=== PATIENT | male | born 1945 | race Caucasian/White ===

== ENCOUNTER 2024-12-08 09:34 | Outpatient (AMB) | payer OTHER, SELFPAY ==
--- NOTE | 2024-12-08 09:47 | MHC.PC.OV ---
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 Request Intake Note: New patient visit Director Strategy Required: No Allergies No Known Allergies Allergy (Verified 12/08/24 09:48) Tobacco use date assessed: 12/08/24 Fall risk assessment: No Falls in past year Last assessed Fall Risk: 12/08/24 Dental Screening Dental Screen Date: 12/08/24 Did you have a dental visit in the last 12 months?: Yes Did you have a dental problem in the last 6 months where you did not have access to dental care?: No Was dental information given to patient?: Patient has dentist HPI HPI Comments History of Present Illness Details The patient is an 79 year old male with past medical history of hypetension, hyperlipidemia, GERD, barretts, presenting to [facility] care. Transfer from [place] CV: amlodipine 5mg daily, metoprolol 25 daily daily. BP is well controlled. Denies chest pain, exertional dyspnea GERD:stable on omeprazole Bilateral right more than left CMC pain. Declines referral . Also with low back pain intermittently-chronic. declines referral Follows with Dr Richardson at [place] for endoscopy. ROS see HPI PHYSICAL EXAM: GENERAL: Alert and oriented x 3. NAD EYES: EOMI. Anicteric. HENT: Moist mucous membranes. No scleral icterus. No cervical lymphadenopathy. LUNGS: Clear to auscultation bilaterally. CARDIOVASCULAR: Regular rate and rhythm. No murmur. No JVD. ABDOMEN: Soft, non-tender +bs EXTREMITIES: No edema. Non-tender. SKIN: No rashes or lesions. Warm. NEUROLOGIC: No focal neurological deficits. CN II-XII grossly intact PSYCHIATRIC: Cooperative. Appropriate mood and affect [facility] Medical History Bilateral cataracts Surgical History History of surgery on arm H/O colonoscopy H/O hernia repair Hx of appendectomy Family History Mother Metastatic cancer Maternal Grandmother Diabetes 1.5, managed as type 1 Father HTN (hypertension) Stroke Daughter Depression Schizophrenia Other FH: mental illness Social History Housing: House Alcohol intake: current Patient Tobacco Use Status: Never used Tobacco e-Cigarette/Vaping Use: Never Used Second Hand Smoke Exposure: No Current occupational status: retired Cognitive needs: No Hearing needs: Yes (hearing impaired) Vision needs: No Questionnaire PHQ-9 Over the last 2 weeks, how often have you been bothered by any of the following problems? 1. Little interest or pleasure in doing things: not at all 2. Feeling down, depressed, or hopeless: not at all 3. Trouble falling or staying asleep, or sleeping too much: not at all 4. Feeling tired or having little energy: not at all 5. Poor appetite or overeating: not at all 6. Feeling bad about yourself - or that you are a failure or have let yourself or your family down: not at all 7. Trouble concentrating on things, such as reading the newspaper or watching television: not at all 8. Moving or speaking so slowly that other people could have noticed. Or the opposite - being so fidgety or restless that you have been moving around a lot more than usual: not at all 9. Thoughts that you would be better off or of hurting yourself in some way: not at all Total score: 0 Depression Screening Interpretation: Negative Depression Screening Done: Yes 16292 - PHQ-9 Billing: Yes Source: Developed by Drs. Ra Barcenas, Shelia Gordon, Keaton Dallas and colleagues, with an educational teri from [email or web address]. Thrive Questionnaire Date Thrive assessed: 12/08/24 I am a: Patient What is your living situation today?: I have a steady place to live Within the past 12 months, did the food you bought not last and you didn't have the money to get more?: I choose not to answer this question Within the past 12 months, did you worry whether your food would run out before you got money to buy more?: I choose not to answer this question Do you have trouble paying for medicines?: No Do you have trouble getting transportation to medical appointments?: No Do you have trouble paying your heating and electricity bill?: No Do you have trouble taking care of your child, family member or friend?: No Do you have trouble with day-to-day activities such as bathing, preparing meals, shopping, managing finances, etc.?: No Are you currently unemployed and looking for a job?: No Are you interested in more education?: No Please select the resources that you would like help with: None Currently or been in a relationship where the following occur: No concerns reported THRIVE Score: 0 AUDIT C Alcohol Use Questionnaire (AUDIT-C) 1. How often do you have a drink containing alcohol?: Never 3. How often do you have six or more drinks on one occasion?: Never Total Score: 0 CHERRI-7 AMB Questionnaire CHERRI-7 Date CHERRI - 7 assessed: 12/08/24 Feeling nervous, anxious, or on edge: 0 = Not at all Not being able to stop or control worryin = Not at all Worrying too much about different things: 0 = Not at all Trouble relaxin = Not at all Being so restless that it is hard to sit still: 0 = Not at all Becoming easily annoyed or irritable: 0 = Not at all Feeling afraid as if something awful might happen: 0 = Not at all Total CHERRI-7 score (0-4 normal; 5-9 mild; 10-14 moderate; 15-21 severe): 0 Source: Developed by Drs. Ra Barcenas, Shelia Gordon, Keaton Dallas and colleagues, with an educational teri from [email or web address]. CHERRI-7 Assessment Billing CHERRI-7 Assessment Tool: CHERRI-7 Assessment 71915 Physical exam (Primary Care) Vital Signs: Last Vital Signs Temp 98 F 12/08/24 09:54 Pulse 55 12/08/24 09:54 Resp 12 12/08/24 09:54 BP 118/72 12/08/24 09:54 Pulse Ox 97 12/08/24 09:54 Oxygen Delivery Method Room Air 12/08/24 09:54 BMI result Body Mass Index 27.1 Tobacco/Smoking Status: Tobacco use Status Tobacco use date assessed 12/08/24 12/08/24 10:05 Patient Tobacco Use Status Never used Tobacco 12/08/24 10:05 e-Cigarette/Vaping Use Never Used 12/08/24 10:05 PHQ-9: PHQ-9 Score PHQ-9: Total score 0 12/08/24 16:57 Depression Screening Interpretation: Negative Thrive Assessment: Date of Thrive Assessment Date Thrive assessed 12/08/24 12/08/24 10:05 Currently or been in a relationship where the following occur: No concerns reported Coding Level of Care Code New Pt Level 4 (21451) Complex EM visit Add On G2211 Diagnoses Primary hypertension I10 Hypertension type: primary hypertension Hyperlipidemia, unspecified hyperlipidemia type E78.5 Hyperlipidemia type: unspecified CMC arthritis M19.049 Chronic low back pain, unspecified back pain laterality, unspecified whether sciatica present M54.50; G89.29 Chronicity: chronic Back pain laterality: unspecified Sciatica presence: unspecified whether sciatica present Additional Codes CHERRI-7 Assessment Billing - CHERRI-7 Assessment Tool: CHERRI-7 Assessment 62214 ([id number]) PHQ-9 - 00537 - PHQ-9 Billing: Yes ([id number]) Assessment & Plan Assessment & Plan (1) Hypertension: Code(s): I10 - Essential (primary) hypertension Category: Medical Qualifiers: Hypertension type: primary hypertension Qualified Code(s): I10 - Essential (primary) hypertension (2) Hyperlipidemia: Code(s): E78.5 - Hyperlipidemia, unspecified Category: Medical Qualifiers: Hyperlipidemia type: unspecified Qualified Code(s): E78.5 - Hyperlipidemia, unspecified (3) CMC arthritis: Code(s): M19.049 - Primary osteoarthritis, unspecified hand Category: Medical (4) Low back pain: Code(s): M54.50 - Low back pain, unspecified Category: Medical Qualifiers: Chronicity: chronic Back pain laterality: unspecified Sciatica presence: unspecified whether sciatica present Qualified Code(s): M54.50 - Low back pain, unspecified; G89.29 - Other chronic pain Plan 79 yo to establish care past medical, surgical, social reviewed Labs ordered HTN well controlled Back pain, CMC pain, voltaren lidocaine ordered Orders: Orders Lipid Panel 12/08/24 E78.5 - Hyperlipidemia, unspecified, I10 - Essential (primary) hypertension, M19.049 - Primary osteoarthritis, unspecified hand, M54.50 - Low back pain, unspecified Complete Blood Count Auto Diff 12/08/24 E78.5 - Hyperlipidemia, unspecified, I10 - Essential (primary) hypertension, M19.049 - Primary osteoarthritis, unspecified hand, M54.50 - Low back pain, unspecified Comprehensive Met. Panel 12/08/24 E78.5 - Hyperlipidemia, unspecified, I10 - Essential (primary) hypertension, M19.049 - Primary osteoarthritis, unspecified hand, M54.50 - Low back pain, unspecified Prostate Specific Antigen 12/08/24 E78.5 - Hyperlipidemia, unspecified, I10 - Essential (primary) hypertension, M19.049 - Primary osteoarthritis, unspecified hand, M54.50 - Low back pain, unspecified Testosterone, Free/Total 12/08/24 E78.5 - Hyperlipidemia, unspecified, I10 - Essential (primary) hypertension, M19.049 - Primary osteoarthritis, unspecified hand, M54.50 - Low back pain, unspecified Medications: New lidocaine 5% leave on most painful area for up to 12 hrs 1 patch topical DAILY 30 ea 3RF lidocaine 5% leave on most painful area for up to 12 hrs 1 patch topical DAILY 30 ea 3RF diclofenac sodium 1% (Voltaren Arthritis Pain) apply to single elbow, wrist or hand; for hand includes palm/fingers/back of hand 2 grams topical QID 100 grams 3RF diclofenac sodium 1% (Voltaren Arthritis Pain) apply to single elbow, wrist or hand; for hand includes palm/fingers/back of hand 2 grams topical QID 100 grams 3RF
[2024-12-08 09:54] VITALS: BP 118/72; PULSE 55; RESP 12; TEMP 36.6; O2SAT 97; BMI 27.1
--- OUTSIDE RECORDS SUMMARY | 2024-12-08 10:00 | XMS_ITS | Clinical Summary ---
Author Organization [facility] Address [address] [place] [address] Phone Care Team Providers Care [place] Name Role Phone Luh Boyd MD Primary Care Provider [phone] Allergies No known active allergies Medications cholecalcifero l (VITAMIN D-3) 50 mcg (2,000 unit) tablet Take 5,000 Units by mouth. 0 Active omeprazole (PriLOSEC) [address] capsule Take 1 Capsule by mouth daily. 4 Active SELENIUM ORAL Take by mouth. Active mv-mn/om3/dha/ epa/fish/lut/z ea (OCUVITE ADULT 50 PLUS ORAL) Take by mouth daily. Active metoprolol succinate (TOPROL-XL) 25 mg 24 hr tablet TAKE 1 TABLET BY MOUTH DAILY 90 tablet 2 5 Active amLODIPine (NORVASC) 5 mg tablet Take 1 tablet (5 mg total) by mouth 1 (one) time each day. 90 tablet 2 5 Active simvastatin (ZOCOR) 20 mg tablet TAKE 1 TABLET BY MOUTH AT BEDTIME 90 tablet 5 Active simvastatin (ZOCOR) 20 mg tablet Take 1 Tablet by mouth at bedtime. 4 11/13/19 25 Discontinued Active Problems Problem Noted Date Diagnosed Date Uncontrolled hypertension 09/04/2022 Hypercholesteremia 10/07/2007 Overview (03/12/2024): Stress echo 07/09/07 normal Hyperglycemia 10/07/2007 Osteopenia 10/07/2007 Overview (03/12/2024): Lumbar spine-1.9 avg, with -2.4 at L4, on 09/06/07, nl vitamin D 10/03, repeat 12/05 Internal hemorrhoid 10/07/2007 Overview (03/12/2024): Incidental finding on colonoscopy 11/28 Immunizations Name Administration Dates Next Due DTaP, Unspecified 07/08/2003 Influenza trivalent, 0.5mL (Fluad) 65yo and olde r 02/13/2019,03/21/2018 Influenza trivalent, 0.5mL, preservative free (Fluarix; FluLaval; Fluzone) ages 6mo and older (Afluria) 3 years and older 03/01/2015,03/10/2014 Influenza, Unspecified 03/02/2023,02/26/2016 Rocket.La SARS-CoV-2 COVID-19, mRNA, LNP-S, preservative free 03/02/2023 Pneumococcal conjugate 13 va lent (Prevnar 13, PCV13) 2mo and older 02/09/2015 Pneumococcal polysaccharide 23 valent (Pneumovax 23) 2yo and older 10/07/2008,07/30/2002 Tdap Tetanus diptheria acell ular pertussis (Boostrix; Adacel) 7yo and older 03/10/2014 Zoster Live 07/07/2014 Zoster recombinant (Shingrix) 19yo and older 02/2019,12/19/2018 Surgical History Surgery Date Site/Laterality Comments OTHER SURGICAL HISTORY 2003 PROCEDURE: HISTORICAL ARM SURGERY; COMMENT: biceps tendon repair, left, Dr Miah Crawford APPENDECTOMY 06/02/09 PROCEDURE: HISTORICAL APPENDECTOMY; COMMENT: perforated appendicitis HERNIA REPAIR 2010 PROCEDURE: HISTORICAL HERNIA REPAIR/CRISELDA; COMMENT: incisional COLONOSCOPY 11/28 PROCEDURE: HISTORICAL COLONOSCOPY; COMMENT: dr Gregory, nl except small int hemorrhoids OTHER SURGICAL HISTORY 03/11/15 PROCEDURE: COLON CA SCRN NOT HI RSK IND; COMMENT: hemorrhoids; would not repeat CATARACT EXTRACTION 2017 Bilateral PROCEDURE: HISTORICAL CATARACT REMOVAL Medical History Medical History Date Comments Hyperglycemia 10/07/2007 DX:Hyperglycemia Osteopenia 10/07/2007 DX:Osteopenia Hypercholesteremia 10/07/2007 DX:Hyperchole steremia; COMMENT: Stress echo 07/09/07 normal History of actinic keratoses 01/19/2014 DX: History of actinic keratoses; COMMENT: Actinic keratosis Hypertension Family History Medical History Relation Name Comments Depression Daughter 1 mental retardat ion, schizophrenia Hypertension Father Stroke Father Diabetes Maternal Grandmother Other cancer Mother metastatic abdo men,stomach? Relation Name Status Comments Brother agent orange ca ncer Daughter 1 Daughter 2 Alive Father (Age 80) cva,HTN, h eart disease Maternal Grandfather Maternal Grandmother Mother (Age 44) metastatic cancer Paternal Grandfather Paternal Grandmother Social History Tobacco Use Types Packs/Day Years Used Date Smoking Tobacco: Never Smokeless Tobacco: Never Alcohol Use Standard Drinks/Week Comments Yes 2.5 (1 standard drink = 0.6 oz p ure alcohol) Interpersonal Safety Answer Date Record ed Physical Abuse 04/14/2024 Verbal Abuse 04/14/2024 Sex and Gender Information Value Date Recorded Sex Assigned at Not on file Legal Sex Male 2:40 AM EST Gender Identity Not on file Sexual Orientation Not on file Obstetrics History Last Filed Vital Signs Vital Sign Reading Time Taken Comments Blood Pressure 114/67 04/14/2024 9:41 AM EST Pulse 54 04/14/2024 9:41 AM EST Temperature 36.1 C (97 F) 04/14/2024 9:21 AM EST Respiratory Rate 17 04/14/2024 9:41 AM EST Oxygen Saturation 98% 04/14/2024 9:41 AM EST Inhaled Oxygen Concentration - - Weight 75.8 kg (167 lb) 04/14/2024 8:41 AM EST Height 172.7 cm (5' 8 ) 04/14/2024 8:41 AM EST Body Mass Index 25.39 04/14/2024 8:41 AM EST Plan of Treatment Health Maintenance Due Date Last Done Comments Depression Screening 05/06/2022 Medicare Annual Wellness Visit 05/06/2022 Social Influencers of Health Screening 05/06/2022 DTaP,Tdap,and Td Vaccines (4 - Td or Tdap) 03/10/2024 03/10/2014, 03/10/2014, 05/28/2005, Additional history exists Hypertension/CHF/CAD Annual BMP Blood Test 06/19/2024 06/19/2023 COVID-19 Vaccine (7 - Moderna risk season) 2024 02/20/2024, 03/02/2023, 02/22/2023, Additional history exists Influenza Vaccine (#1) 2025 , 03/28/2023, 03/02/2023, Additional history exists Falls Risk Assessment 04/14/2025 04/14/2024 Cholesterol Screening (Lipid Panel) 06/19/2028 06/19/2023 Pneumococcal Vaccine: 50+ Years Completed 05/29/2018, 05/05/2015, 02/09/2015, Additional history exists Zoster Vaccines Completed 05/06/2019, 11/26, 07/07/2014, Additional history exists RSV Immunization Adult Patients Completed 06/26/2023 HIB Vaccines Aged Out No longer eligi ble based on patient's age to complete this topic HPV Vaccines Aged Out No longer eligi ble based on patient's age to complete this topic Hepatitis A Vaccines Aged Out No long er eligible based on patient's age to complete this topic Hepatitis B Vaccines Aged Out No long er eligible based on patient's age to complete this topic IPV Vaccines Aged Out No longer eligi ble based on patient's age to complete this topic MMR Vaccines Aged Out No longer eligi ble based on patient's age to complete this topic Meningococcal ACWY Vaccine Aged Out N o longer eligible based on patient's age to complete this topic Meningococcal B Vaccine Aged Out No l onger eligible based on patient's age to complete this topic RSV Immunization Patients Under 20 months Aged Out No longer eligible based on patient's age to complete this topic Varicella Vaccines Aged Out No longer eligible based on patient's age to complete this topic Procedures Procedure Name Priority Date/Time Associated Diagnosis Comments ANNUAL BMP BLOOD TEST Routine 06/19/2023 LIPID PANEL Routine 06/19/2023 from Last 3 Months or Most Recently Relevant to Health Maintenance Results * Annual BMP Blood Test (06/19/2023) Annual BMP Blood Test abstracted Historical Provider MD HEALTH MAINTENANCE Final Result * (ABNORMAL) Lipid panel (06/19/2023) LDL/HDL Ratio 3 0 - 4 Triglycerides 57 0 - 150 mg/dL Cholesterol 186 0 - 200 mg/dL HDL 74 >=40 mg/dL LDL Cholesterol 101(A) 0 - 100 mg/dL Blood Venous blood specimen / Unknown Historical Provider LAB BLOOD ORDERABLES Tia l Result from Last 3 Months or Most Recently Relevant to Health Maintenance Insurance [place] [address] [employer] Care Teams [place] Relationship Specialty Start Date End Date Luh Boyd MD [address] [place] [address] PCP - General Internal Medicine 11/11/24
== END 2024-12-08 10:24 | disposition home or self-care (01) ==
LOC: HO.HMCFM 09:35
PROVIDERS: PCP Internal Medicine; Visit Provider Internal Medicine
DX: I10 Essential (primary) hypertension (principal); E78.5 Hyperlipidemia, unspecified; M19.049 Primary osteoarthritis, unspecified hand; M54.50 Low back pain, unspecified; G89.29 Other chronic pain

== ENCOUNTER → 2024-12-08 09:34 | Outpatient (BNVA) | payer OTHER, SELFPAY | PROVIDERS: PCP Internal Medicine; Visit Provider Internal Medicine | DX: Z76.89 Persons encountering health services in other specified circumstances (principal); I10 Essential (primary) hypertension; E78.5 Hyperlipidemia, unspecified; M19.049 Primary osteoarthritis, unspecified hand; M54.50 Low back pain, unspecified; G89.29 Other chronic pain; K21.9 Gastro-esophageal reflux disease without esophagitis; Z79.899 Other long term (current) drug therapy; Z13.31 Encounter for screening for depression; Z13.39 Encounter for screening examination for other mental health and behavioral disorders | CPT/HCPCS: 96127; 99202 ==

== ENCOUNTER 2024-12-08 11:14 | Outpatient (REF) | payer OTHER, SELFPAY ==
[2024-12-08 15:28] LABS: MANUAL DIFF FLAG NO
[2024-12-08 15:43] LABS: Hematocrit 43.5 % (42.0-52.0); Hemoglobin 13.8 g/dl (14.0-18.0); Imm Gran Abs Auto 0.02 X10*3/uL (0.00-0.03); Imm Gran Pct Auto 0.3 % (0.0-0.4); Lymphocytes Absolute Auto 1.9 X10*3/uL (1.2-4.9); Mean Corpuscular HGB Conc 31.7 g/dl (31.0-36.0); Mean Corpuscular Hemoglobin 27.7 pg (27.0-33.0); Mean Corpuscular Volume 87.2 fL (80.0-98.0); NRBC Abs Auto 0.000 X10*3/uL (0.0-0.012); NRBC Pct Auto 0.0 /100WBC (0.0-0.2); Platelet Count 295 X10*3/uL (160-400); Red Blood Count 4.99 X10*6/uL (4.60-5.80); White Blood Count 6.8 X10*3/uL (4.8-10.8)
[2024-12-08 16:11] LABS: Alanine Aminotransferase 23 U/L (0-40); Albumin Level 4.4 g/dL (3.5-5.0); Alkaline Phosphatase 68 U/L (39-117); Anion Gap 11 (12-20); Aspartate Amino Transferase 31 U/L (5-37); Blood Urea Nitrogen 23 mg/dL (9-16); Calcium 9.3 mg/dL (8.4-10.2); Carbon Dioxide 29 mmol/L (22-29); Chloride 108 mmol/L (96-108); Cholesterol 155 mg/dL (<200); Estimated Glomerular Filt Rate > 60; HDL Cholesterol 58 mg/dL (>40); Potassium 4.8 mmol/L (3.3-5.1); Sodium 143 mmol/L (135-145); Total Protein 6.7 g/dL (6.5-8.0); Triglycerides 64 mg/dL (<150)
[2024-12-08 16:12] LABS: Prostate Specific Antigen 3.09 ng/mL (<0.05-4.0)
[2024-12-13 19:33] LABS: Testosterone, Free 37.6 pg/mL (30.0-135.0)
== END 2024-12-08 11:15 | disposition home or self-care (01) ==
LOC: HO.WFDLDS 11:14
PROVIDERS: Visit Provider Internal Medicine
DX: I10 Essential (primary) hypertension (principal); M54.50 Low back pain, unspecified; M19.049 Primary osteoarthritis, unspecified hand; E78.5 Hyperlipidemia, unspecified
CPT/HCPCS: 36415; 80053; 80061; 84153; 84402; 84403; 85025